=== PATIENT | male | born 2000 | race Two or more races ===

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

== ENCOUNTER 2023-02-13 16:43 | Emergency (ER) | payer SELFPAY ==
[2023-02-13] MEDS ORDERED: Ketorolac Tromethamine 30 MG/ML VIAL ONE (17:11)
== END 2023-02-13 17:33 | disposition home or self-care (01) ==
LOC: ERS 16:43
DX: K08.89 Other specified disorders of teeth and supporting structures (principal); K02.9 Dental caries, unspecified; L03.211 Cellulitis of face
CPT/HCPCS: 96372; 99283; J1885